=== PATIENT | male | born 1955 | race Hispanic/Latino ===

== ENCOUNTER 2025-07-15 14:30 | Emergency (ER) | payer OTHER ==
[2025-07-15] MEDS ORDERED: ASPIRIN 81 MG CHEWABLE TABLET ONE (15:22)
[2025-07-15 15:27] LABS: Absolute Lymphocytes (CBC) 1.4 K/uL (0.7-4.9); Hematocrit 40.1 % (39.6-49.0); Hemoglobin 13.8 g/dL (13.6-17.9); MCH 30.5 pg (27.0-35.0); MCHC 34.3 g/dL (32.0-36.0); MCV 89.0 fL (80-100); MPV 9.4 fL (7.6-11.3); Nucleated RBC Absolute Count 0.0 (0-0); Nucleated Red Blood Cells % 0.1 % (0-0); RBC Red Blood Cell Count 4.51 M/uL (4.33-5.43); White Blood Count 5.80 thou/uL (4.3-10.9)
--- NOTE | 2025-07-15 15:54 | RAD REPORT ---
EXAMINATION: ONE VIEW CHEST XR CLINICAL INDICATION: Male, 70 years old.,CHEST PAIN TECHNIQUE: Frontal chest projection is submitted. Examination is limited by patient positioning and t echnique. COMPARISON: 09/22/2013 FINDINGS: The lungs are well inflated and clear. Stable right apical 1.9 cm nodule or granuloma. Implantable rh ythm monitoring device in place. No pneumothorax or sizable effusion. The heart is normal in size. Mediastinal contours are unremarkable. IMPRESSION: No acute intrathoracic abnormalities.
[2025-07-15 16:08] LABS: ALT/SGPT 26 U/L (16-61); Albumin 3.5 g/dL (3.4-5.0); Albumin/Globulin Ratio 1.0 (1.1-1.8); Alkaline Phosphatase 70 U/L (45-117); Anion Gap 7.1 mEq/L (5.0-15.0); BUN Blood Urea Nitrogen 14 mg/dL (7-18); Globulin 3.5 g/dL (2.3-3.5); Glucose Level 115 mg/dL (74-106); NT PRO-BNP 192 pg/mL (<125); Troponin High Sensitivity 6.9 pg/mL (<58.9)
[2025-07-15 16:13] LABS: AST/SGOT 18 U/L (15-37); Bilirubin Indirect, Calculated 0.2 mg/dL (0.2-0.8); Potassium 4.1 mEq/L (3.5-5.1)
[2025-07-15 16:14] LABS: Magnesium 2.1 mg/dL (1.6-2.4)
[2025-07-15 16:16] LABS: D-Dimer < 0.215 FEUug/mL (0-0.500); PT Prothrombin Time 12.3 SECONDS (10-13.0); Protime INR 1.09
[2025-07-15] MEDS ORDERED: LORAZEPAM 0.5 MG TABLET ONE (16:57)
--- NOTE | 2025-07-15 19:10 | ER ---
Nurse's Notes [facility] Name: Miguel Barry Age: 70 yrs Sex: Male : 1955 Arrival Date: 07/15/2025 Time: 14:30 Bed 3 Private MD: Diagnosis: Chest pain, unspecified;Hypertensive heart disease without heart failure;Bradycardia, unspecified Presentation: 07/15 14:40 Chief complaint: Patient states: HE FELT A "ELECTRICAL SHOCK" IN HIS HEART THAT LASTED dd2 FOR 2 SECONDS EARLIER TODAY. PT DENIES ANY FURTHER DISCOMFORT. REPORTS WAS SEEN BY FREE LANCE ARTIST AND SCHEDULED FOR CARDIAC TESTS THIS MONTH. Coronavirus screen: At this time, the client does not indicate any symptoms associated with coronavirus-19. Ebola Screen: No symptoms or risks identified at this time. Initial Sepsis Screen: Does the patient meet any 2 criteria? No. Patient's initial sepsis screen is negative. Does the patient have a suspected source of infection? No. Patient's initial sepsis screen is negative. Risk Assessment: Do you want to hurt yourself or someone else? Patient reports no desire to harm self or others. Onset of symptoms was July 15, 2025. 14:40 Method Of Arrival: Ambulatory dd2 14:40 Acuity: TYRA 3 dd2 Triage Assessment: 14:44 General: Appears in no apparent distress. well groomed, well nourished, Behavior is dd2 calm, cooperative, appropriate for age. Pain: Denies pain. 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 14:44 Cardiovascular: Patient's skin is warm and dry. dd2 Historical: - Allergies: 14:44 Sulfa (Sulfonamide Antibiotics); dd2 - PMHx: 14:44 Atrial fibrillation; Hypertensive disorder; COLON CANCER; dd2 - PSHx: 14:44 COLON RESECTION; HEART ABLASION; dd2 - Immunization history:: Adult Immunizations up to date. - Infectious Disease History:: Denies. - Social history:: Smoking status: Patient denies any tobacco usage or history of. Screenin:26 [facility] ED Fall Risk Assessment (Adult) History of falling in the last 3 months, af3 including since admission No falls in past 3 months (0 pts) Confusion or Disorientation No (0 pts) Intoxicated or Sedated No (0 pts) Impaired Gait No (0 pts) Mobility Assist Device Used No (0 pt) Altered Elimination No (0 pt) Score/Fall Risk Level 0 - 2 = Low Risk Oriented to surroundings, Maintained a safe environment, Educated pt \\T\\ family on fall prevention, incl call for assistance when getting out of bed. Abuse screen: Denies threats or abuse. Denies injuries from another. Nutritional screening: No deficits noted. Tuberculosis screening: No symptoms or risk factors identified. Assessment: 15:26 General: Appears in no apparent distress. comfortable, well groomed, well developed, af3 Behavior is calm, cooperative, appropriate for age. Pain: Complains of pain in chest Pain does not radiate. Pain currently is 1 out of 10 on a pain scale. Pain began 30 min ago. Neuro: Level of Consciousness is awake, alert, obeys commands, Oriented to person, place, time, situation, Appropriate for age. Cardiovascular: Patient's skin is warm and dry. Cardiovascular: Rhythm is sinus rhythm with 1st degree heart block. Respiratory: Airway is patent Respiratory effort is even, unlabored, Respiratory pattern is regular, symmetrical. 17:00 Reassessment: Patient appears in no apparent distress at this time. Patient and/or ph family updated on plan of care and expected duration. Pain level reassessed. Patient is alert, oriented x 3, equal unlabored respirations, skin warm/dry/pink. 18:25 Reassessment: Patient appears in no apparent distress at this time. Patient and/or ph family updated on plan of care and expected duration. Pain level reassessed. Patient is alert, oriented x 3, equal unlabored respirations, skin warm/dry/pink. Patient denies pain at this time. Reassessment: Awaiting results of repeat cardiac enzymes. Vital Signs: 14:40 BP 159 / 72; Pulse 51; Resp 16; Temp 98.2; Pulse Ox 100% ; Weight 113.4 kg; Height 6 dd2 ft. 5 in. ; Pain 0/10; 15:58 BP 159 / 69; Pulse 48; Resp 18; Pulse Ox 100% on R/A; ph 16:50 BP 176 / 83; Pulse 52; Resp 18; Pulse Ox 99% on R/A; af3 17:19 BP 180 / 88; Pulse 47; Resp 18; Pulse Ox 100% on R/A; af3 18:24 BP 176 / 83; Pulse 49; Resp 18; Pulse Ox 99% on R/A; ph 18:38 BP 177 / 80; Pulse 52; Resp 18; Pulse Ox 100% on R/A; af3 19:30 BP 177 / 83; Pulse 48; Resp 18; Pulse Ox 99% ; cp4 14:40 Body Mass Index 29.65 (113.40 kg, 195.58 cm) dd2 14:40 Pain Scale: Adult dd2 Vitals: 15:58 Cardiac Rhythm Assessment Sinus nhung. ph ED Course: 14:34 Patient arrived in ED. im 14:44 Triage completed. dd2 14:44 Arm band placed on right wrist. dd2 14:45 Jass Faith PA-C is PHCP. cp 14:45 Bob Bhandari MD is Attending Physician. cp 15:09 Cristine Hernandez, VENKATA is Primary Nurse. ph 15:25 No provider procedures requiring assistance completed. Initial lab(s) drawn, by me, af3 sent to lab. EKG done, by ED staff, reviewed by Jass Faith PA-C. Inserted saline lock: 20 gauge in right antecubital area, using aseptic technique. Blood collected. Flushed with 10 mL NS. Patient maintains SpO2 saturation greater than 95% on room air. 15:26 Patient has correct armband on for positive identification. Bed in low position. Call af3 light in reach. Provided Education on: call light use . Client placed on continuous cardiac and pulse oximetry monitoring. NIBP monitoring applied. traffic monitor specialist on. Pulse ox on. NIBP on. 15:48 XRAY Chest (1 view) In Process Unspecified. EDMS 18:18 Repeat lab(s) drawn. by me, sent to lab. ph 19:30 intact, bleeding controlled, No redness/swelling at site. Pressure dressing applied. cp4 Administered Medications: 15:33 Drug: Aspirin PO Chewable Tablet 324 mg PO once; 81 mg tablets x 4 Route: PO; af3 17:09 Follow up: Response: No adverse reaction af3 16:59 Drug: LORazepam PO 0.5 mg PO once Route: PO; af3 19:21 Follow up: Response: No adverse reaction cp4 Medication: 15:26 VIS not applicable for this client. af3 Outcome: 19:10 Discharge ordered by . cp 19:30 Discharged to home ambulatory, cp4 19:30 Condition: stable 19:30 Discharge instructions given to patient, family, Instructed on discharge instructions, follow up and referral plans. Demonstrated understanding of instructions, follow-up care, 19:41 Patient left the ED. kj2 Signatures: Dispatcher [employer] EDCristine Grubbs, RN RN Jass Delgado, PAGabriel PA-Yolanda Nuno cp, Christina cp4 Kathleen Chaudhari RN RN kj2 Lisa Shen RN RN af3 ANAHI VARGAS RN RN dd2
--- NOTE | 2025-07-15 19:10 | EDPHYS ---
Physician Documentation [facility] Name: Miguel Barry Age: 70 yrs Sex: Male : 1955 Arrival Date: 07/15/2025 Time: 14:30 Bed 3 Private MD: ED Physician Bob Bhandari HPI: 07/15 15:05 This 70 yrs old Male presents to ER via Ambulatory with complaints of Chest cp Pain - "shock". 15:05 The patient or guardian reports chest pain that is located primarily in the anterior cp chest wall, left. Onset: today. The pain does not radiate. The chest pain is described as described feeling like a "shock". Duration: The patient or guardian reports multiple episodes, that are intermittent, with no pattern. Episodes started while passenger in car being driven by to [place] from [place]. 15:05 Severity of pain: in the emergency department the pain has resolved and did so just cp prior to arrival. Historical: - Allergies: 14:44 Sulfa (Sulfonamide Antibiotics); dd2 - PMHx: 14:44 Atrial fibrillation; Hypertensive disorder; COLON CANCER; dd2 - PSHx: 14:44 COLON RESECTION; HEART ABLASION; dd2 - Immunization history:: Adult Immunizations up to date. - Infectious Disease History:: Denies. - Social history:: Smoking status: Patient denies any tobacco usage or history of. ROS: 15:10 Constitutional: Negative for body aches, chills, fever, poor PO intake, cp 15:10 Eyes: Negative for injury, pain, redness, and discharge, cp 15:10 ENT: Negative for drainage from ear(s), ear pain, sore throat, difficulty swallowing, difficulty handling secretions, 15:10 Cardiovascular: Positive for chest pain, of the left side of chest, Negative for edema, palpitations, 15:10 Respiratory: Negative for cough, shortness of breath, wheezing, 15:10 Abdomen/GI: Negative for abdominal pain, nausea, vomiting, and diarrhea, 15:10 Back: Negative for pain at rest, pain with movement, 15:10 Neuro: Negative for altered mental status, dizziness, headache, syncope, near syncope, weakness, 15:10 All other systems are negative, Exam: 15:15 Constitutional: The patient appears in no acute distress, alert, awake, cp non-diaphoretic, non-toxic, well developed, well nourished, 15:15 Head/Face: Normocephalic, atraumatic. cp 15:15 Eyes: Periorbital structures: appear normal, Conjunctiva: normal, no exudate, no injection, Sclera: no appreciated abnormality, Lids and lashes: appear normal, bilaterally, 15:15 ENT: External ear(s): are unremarkable, Nose: is normal, Mouth: Lips: moist, Oral mucosa: moist, Posterior pharynx: Airway: no evidence of obstruction, patent, 15:15 Neck: ROM/movement: is normal, is supple, without pain, no range of motions limitations, 15:15 Chest/axilla: Inspection: normal, Palpation: is normal, no crepitus, no tenderness, 15:15 Cardiovascular: Rate: bradycardic, Rhythm: regular, Edema: is not appreciated, JVD: is not appreciated, 15:15 Respiratory: the patient does not display signs of respiratory distress, Respirations: normal, no use of accessory muscles, no retractions, labored breathing, is not present, Breath sounds: are clear throughout, no stridor, no wheezing, 15:15 Abdomen/GI: Inspection: abdomen appears normal, Palpation: abdomen is soft and non-tender, in all quadrants, 15:15 Back: pain, is absent, ROM is normal, 15:15 Neuro: Orientation: to person, place \\T\\ time. Mentation: able to follow commands, Cerebellar function: is grossly normal, Motor: moves all fours, strength is normal, Sensation: is normal, 15:23 ECG was reviewed by the Attending Physician. cp Vital Signs: 14:40 BP 159 / 72; Pulse 51; Resp 16; Temp 98.2; Pulse Ox 100% ; Weight 113.4 kg; Height 6 dd2 ft. 5 in. ; Pain 0/10; 15:58 BP 159 / 69; Pulse 48; Resp 18; Pulse Ox 100% on R/A; ph 16:50 BP 176 / 83; Pulse 52; Resp 18; Pulse Ox 99% on R/A; af3 17:19 BP 180 / 88; Pulse 47; Resp 18; Pulse Ox 100% on R/A; af3 18:24 BP 176 / 83; Pulse 49; Resp 18; Pulse Ox 99% on R/A; ph 18:38 BP 177 / 80; Pulse 52; Resp 18; Pulse Ox 100% on R/A; af3 19:30 BP 177 / 83; Pulse 48; Resp 18; Pulse Ox 99% ; cp4 14:40 Body Mass Index 29.65 (113.40 kg, 195.58 cm) dd2 14:40 Pain Scale: Adult dd2 MDM: 14:45 Medical Screening Exam initiated cp 19:10 The patient was given aspirin in the Emergency Department. cp 19:10 Differential diagnosis: abnormal EKG, acute myocardial infarction, acute pericarditis, cp pneumonia, pneumothorax, pulmonary embolus, stable angina, thoracic aortic disection, unstable angina. Data reviewed: vital signs, nurses notes, lab test result(s), EKG, radiologic studies, plain films, and as a result, I will discharge patient. Consideration of Admission/Observation Escalation of care including admission/observation considered. I considered the following discharge prescriptions or medication management in the emergency department Medications were administered in the Emergency Department. See MAR. Independent interpretation of the following test(s) in the Emergency Department EKG: See my EKG interpretation above X-Ray: My interpretation is chest image negative for infiltrates. Care significantly affected by the following chronic conditions: Hypertension, Cancer. Counseling: I had a detailed discussion with the patient and/or guardian regarding the historical points, exam findings, and any diagnostic results supporting the discharge/admit diagnosis, lab results, radiology results, to return to the emergency department if symptoms worsen or persist or if there are any questions or concerns that arise at home. Response to treatment: the patient's symptoms have mildly improved after treatment, and as a result, I will discharge patient. Special discussion: Based on the patient's history, exam, and Dx evaluation, there is no indication for emergent intervention or inpatient Tx. It is understood by the patient/guardian that if the Sx's persist or worsen they need to return immediately for re-evaluation. ED course: VSS. Initial and repeat troponin negative. Will discharge to home for continued monitoring. 07/15 15:05 Order name: Basic Metabolic Panel; Complete Time: 16:27 cp 07/15 16:27 Interpretation: Normal except: CL 108; GLUC 115; GFR 77. cp 07/15 15:05 Order name: CBC with Diff; Complete Time: 16:27 cp 07/15 15:05 Order name: D-Dimer; Complete Time: 16:27 07/15 15:05 Order name: LFT's; Complete Time: 16:27 cp 07/15 15:05 Order name: Magnesium; Complete Time: 16:27 07/15 15:05 Order name: NT PRO-BNP; Complete Time: 16:27 07/15 15:05 Order name: PT-INR; Complete Time: 16:27 07/15 15:05 Order name: Troponin HS; Complete Time: 16:27 07/15 16:28 Interpretation: Reviewed. 07/15 17:34 Order name: Troponin High Sensitivity; Complete Time: 19:01 07/15 15:05 Order name: XRAY Chest (1 view); Complete Time: 16:27 07/15 16:28 Interpretation: Report review. 07/15 15:05 Order name: EKG; Complete Time: 15:05 07/15 15:05 Order name: Cardiac monitoring; Complete Time: 15:25 07/15 15:05 Order name: EKG - Nurse/Tech; Complete Time: 15:25 07/15 15:05 Order name: IV Saline Lock; Complete Time: 15:25 07/15 15:05 Order name: Labs collected and sent; Complete Time: 15:25 07/15 15:05 Order name: O2 Per Protocol; Complete Time: 15: 07/15 15:05 Order name: O2 Sat Monitoring; Complete Time: 15:09 cp EC:23 Rate is 50 beats/min. Rhythm is regular. DC interval is prolonged at 264 msec. QRS cp interval is prolonged at 126 msec. QT interval is normal. T waves are Inverted in lead aVR. Interpreted by me. Reviewed by me. Administered Medications: 15:33 Drug: Aspirin PO Chewable Tablet 324 mg PO once; 81 mg tablets x 4 Route: PO; af3 17:09 Follow up: Response: No adverse reaction af3 16:59 Drug: LORazepam PO 0.5 mg PO once Route: PO; af3 19:21 Follow up: Response: No adverse reaction cp4 Disposition: 07/16 07:02 Co-signature as Attending Physician, Bob Bhandari MD I reviewed the patient's care rn provided by the Advanced Practice Provider and agree with the diagnosis and treatment plan. Disposition Summary: 07/15/25 19:10 Discharge Ordered Notes: Location: Home cp Problem: new cp Symptoms: have improved cp Condition: Stable cp Diagnosis - Chest pain, unspecified cp - Hypertensive heart disease without heart failure cp - Bradycardia, unspecified cp Followup: cp - With: Private Physician - When: 2 - 3 days - Reason: Recheck today's complaints Discharge Instructions: - Discharge Summary Sheet cp - Bradycardia, Adult cp - Nonspecific Chest Pain, Adult cp - Hypertension, Adult cp - Aspirin and Your Heart cp - Form - Blood Pressure Record Sheet cp - How to Take Your Blood Pressure cp Forms: - Medication Reconciliation Form cp - Antibiotic Education cp - Prescription Opioid Use cp - Patient Portal Instructions cp - Leadership Thank You Letter cp Signatures: Dispatcher [employer] EDMS Bob Bhandari MD MD rn Page, Corey, PA-C PA-C cp Lisa Shen RN RN af3 ANAHI VARGAS RN RN dd2 Iva Haas cp4 Corrections: (The following items were deleted from the chart) 07/15 15:06 15:05 BASIC METABOLIC PANEL+C.LAB.BRZ ordered. EDMS EDMS 15:06 15:05 CBC+H.LAB.BRZ ordered. EDMS EDMS 15:06 15:05 D-DIMER+COAG.LAB.BRZ ordered. EDMS EDMS 15:06 15:05 HEPATIC FUNCTION+C.LAB.BRZ ordered. EDMS EDMS 15:06 15:05 MAGNESIUM+C.LAB.BRZ ordered. EDMS EDMS 15:06 15:05 PROBNP+C.LAB.BRZ ordered. EDMS EDMS 15:06 15:05 PROTIME (+INR)+COAG.LAB.BRZ ordered. EDMS EDMS 15:06 15:05 Troponin High Sensitivity+C.LAB.BRZ ordered. EDMS EDMS 07/16 19:37 07/15 19:30 The patient was given aspirin in the Emergency Department. cp cp
[2025-07-15 19:46] VITALS: TEMP 98.2
[2025-07-15 19:56] VITALS: BP 177/83; O2SAT 99
== END 2025-07-15 19:41 | disposition home or self-care (01) ==
LOC: ER 14:30
DX: I11.9 Hypertensive heart disease without heart failure (principal); R00.1 Bradycardia, unspecified; I10 Essential (primary) hypertension; I48.91 Unspecified atrial fibrillation
CPT/HCPCS: 36415; 71045; 80048; 80076; 83735; 83880; 84484; 85025; 85379; 85610; 93005; 99285